=== PATIENT | female | born 1960 | race Caucasian/White ===

== ENCOUNTER → 2020-12-22 11:14 | Outpatient (BNVA) | payer OTHER, SELFPAY | PROVIDERS: Family Provider Nurse Practitioner Family; PCP Nurse Practitioner Family; Visit Provider Nurse Practitioner Family | DX: Z20.822 Contact with and (suspected) exposure to COVID-19 (principal) | CPT/HCPCS: 87635 ==

== ENCOUNTER 2023-10-09 09:06 | Day surgery (SDC) | payer MEDICAID, SELFPAY ==
[2023-10-09 09:23] VITALS: BP 139/89; PULSE 70; RESP 18; TEMP 36.2; O2SAT 96; BMI 36.6
[2023-10-09] MEDS: sodium chloride 0.9% 1,000 ML 30 ML IV (09:35)
--- NOTE | 2023-10-09 11:04 | ANES.PREANE2 ---
Pre-Anesthetic Assessment Height/Weight: Height 1.83 m Weight 122.47 kg Temp Pulse Resp BP Pulse Ox O2 Del Method 97.2 F L 70 18 139/89 96 Room Air 10/09/23 09:23 10/09/23 09:23 10/09/23 09:23 10/09/23 09:23 10/09/23 09:23 10/09/23 09:23 Preop Diagnosis: Screening Operation Date: 10/09/23 10:15 Proposed Procedures p Colonoscopy 18270, G0105, Z98.890 ,Z12.11(Not Applicable) - Thad Quarles DO Familial anesthetic complications: None Was Beta Casandra taken within 24 hours: N/A Was Clonidine taken within 24 hours: N/A Last intake: Intake Last Liquid Date 10/08/23 Last Liquid Time 23:30 Last Solid Date 10/07/23 Last Solid Time 17:00 Social Tobacco (Chews) and No alcohol Exam alert, oriented x 3, clear to auscultation bilaterally and regular rate & rhythm Airway Submandibular: within normal limits Cervical ROM: within normal limits Mallampati: Class III Dentition: partials History/ROS No significant history except as noted and No significant complaints Pulmonary None reported CV/HEM Hypertension None reported Hepatic None reported GI None reported Metabolic Morbid Obesity [facility] [place] None reported Neuropsych None reported Anesthetic Plan ASA status: 2 Anesthesia: Anesthesia Evaluation, General and MAC Risk of > 500 ml blood loss (7ml/kg in children): No Medications/Allergies Home Medications Medication Instructions Recorded Confirmed Last Taken Type hydrochlorothiazide 50 mg tablet 50 mg PO DAILY 09/06/23 10/09/23 10/07/23 History losartan 100 mg tablet 100 mg PO DAILY 09/06/23 10/09/23 10/07/23 History Allergies Allergy/AdvReac Type Severity Reaction Status Date / Time Penicillins Allergy Unknown Verified 10/09/23 09:21 Current Medications Generic Name Dose Route Start Last Admin Trade Name Freq PRN Reason Stop Dose Admin Sodium Chloride 1,000 mls @ 30 mls/hr 10/09/23 09:15 10/09/23 09:35 Sodium Chloride 0.9% IV 10/10/23 09:14 30 mls/hr .Q24H MODESTO Administration PFSH Anesthesia Medical History (Updated 09/06/23 @ 09:50 by Thad Quarlse DO) History of rectal fissure Surgical History (Updated 09/06/23 @ 09:50 by Thad Quarles DO) Hx of excision of dermoid cyst Hx of colonoscopy with polypectomy 7 yrs ago Family History Brother Acute Crohn's disease Social History Smoking and tobacco/nicotine status: current every day tobacco/nicotine user smokeless tobacco Smokeless tobacco user: chewing tobacco Data Anesthesia Cardiac Studies: No Data to Display
--- NOTE | 2023-10-09 11:15 | PM.HP ---
Providers/Chief Complaint Primary Care Provider: Sarah Plata DO Chief Complaint: Z12.11 History of Present Illness Tim Gagnon is a 63 year old female Review of Systems General: Reports: 10 or more systems reviewed and unremarkable except in HPI and below Medications/Allergies Home Medications Medication Instructions Recorded Confirmed Last Taken Type hydrochlorothiazide 50 mg tablet 50 mg PO DAILY 09/06/23 10/09/23 10/07/23 History losartan 100 mg tablet 100 mg PO DAILY 09/06/23 10/09/23 10/07/23 History Allergies Allergy/AdvReac Type Severity Reaction Status Date / Time Penicillins Allergy Unknown Verified 10/09/23 09:21 PFSH Acute PFSH: Medical History (Updated 09/06/23 @ 09:50 by Thad Quarles DO) History of rectal fissure Surgical History (Updated 09/06/23 @ 09:50 by Thad Quarles DO) Hx of excision of dermoid cyst Hx of colonoscopy with polypectomy 7 yrs ago Family History Brother Acute Crohn's disease Social History Smoking and tobacco/nicotine status: current every day tobacco/nicotine user smokeless tobacco Smokeless tobacco user: chewing tobacco Vitals/I&O/Wt Last Vital Signs Temp 97.2 F L 10/09/23 09:23 Pulse 70 10/09/23 09:23 Resp 18 10/09/23 09:23 BP 139/89 10/09/23 09:23 Pulse Ox 96 10/09/23 09:23 O2 Del Method Room Air 10/09/23 09:23 Weight last 48 hrs Weight 270 lb A&P Assessment and plan (1) Hx of colonoscopy with polypectomy: Plan Colonoscopy Attestations Medical Necessity Statement*: Home Coding Level of Care Code Acute Code for Chg Fwd Diagnoses Hx of colonoscopy with polypectomy Z98.890; Z86.010
[2023-10-09 11:30] VITALS: BP 130/79; PULSE 60; RESP 16; TEMP 36.4; O2SAT 95
[2023-10-09 11:57] VITALS: BP 144/84; PULSE 58; RESP 18; O2SAT 95
--- NOTE | 2023-10-09 14:41 | ANE.PACU2 ---
Inpatient post-anesthesia follow up: Airway intact: Yes Vital signs: Temperature 97.5 F Pulse Rate 58 Respiratory Rate 18 Blood Pressure 144/84 Pulse Oximetry 95 Oxygen Delivery Me thod Room Air Oxygen Flow Rate Fraction of Inspir ed Oxygen Hydration adequate: Yes Nausea and vomiting: No Pain level: 2 Mental status: Baseline
== END 2023-10-09 12:04 | disposition home or self-care (01) ==
PROVIDERS: Family Provider Nurse Practitioner Family; PCP Family Medicine; Visit Provider Surgery
PROC: 0DJD8ZZ Inspection of Lower Intestinal Tract, Via Natural or Artificial Opening Endoscopic (ICD-10-PCS; CPT 45378; principal; 2023-10-09 10:15)
DX: K64.8 Other hemorrhoids (principal); Z86.010 Personal history of colon polyps
CPT/HCPCS: G0121; J2704; J7030

== ENCOUNTER 2025-01-05 14:28 | Outpatient (CLI) | payer MEDICAID, SELFPAY ==
--- NOTE | 2025-01-05 14:43 | XRR_ITS ---
PROCEDURE INFORMATION: Exam: XR Right Shoulder Exam date and time: 01/05/2025 3:16 PM Age: 64 years old Clinical indication: Right; Few months limited rom and pain in lateral shoulder; Additional info: R shoulder joint pain TECHNIQUE: Imaging protocol: Radiologic exam of the right shoulder. Views: 2 or more views. COMPARISON: No relevant prior studies available. FINDINGS: Bones/joints: No acute fracture or dislocation of the right shoulder. Mild arthropathy of the right AC joint. Soft tissues: Normal. XR/XR shoulder RT min 2V* [id number] IMPRESSION: No acute fracture or dislocation of the right shoulder.
== END 2025-01-05 14:29 | disposition home or self-care (01) ==
PROVIDERS: Family Provider Nurse Practitioner Family; PCP Family Medicine; Visit Provider Family Medicine
DX: M25.511 Pain in right shoulder (principal); M19.011 Primary osteoarthritis, right shoulder
CPT/HCPCS: 73030

== ENCOUNTER 2025-01-11 19:29 | Observation (INO) | payer MEDICAID, SELFPAY ==
[2025-01-11] VITALS (18 sets, daily range): BP systolic 168–210; BP diastolic 81–113; PULSE 60–80; RESP 14–18; TEMP 36.7; O2SAT 93–100; BMI 35.4
--- NOTE | 2025-01-11 19:38 | CTR_ITS ---
PROCEDURE INFORMATION: Exam: CTA Head With Contrast, Arteriography Exam date and time: 01/11/2025 7:47 PM Age: 64 years old Clinical indication: Weakness; Additional info: Stroke symptoms TECHNIQUE: Imaging protocol: Computed tomographic angiography of the head with contrast. Exam focused on the arteries. 3D rendering (Not supervised by radiologist): MIP and/or 3D reconstructed images were created by the technologist. Radiation optimization: All CT scans at this facility use at least one of these dose optimization techniques: automated exposure control; mA and/or kV adjustment per patient size (includes targeted exams where dose is matched to clinical indication); or iterative reconstruction. Contrast material: OMNI 350; Contrast volume: 200 ml; Contrast route: INTRAVENOUS (IV); COMPARISON: CT head thrombolytic [id number] 01/11/2025 7:44 PM RADIATION DOSE METRICS: Total DLP (mGy-cm): 1070.47 FINDINGS: ANTERIOR CIRCULATION: Right internal carotid artery: Intracranial segment is patent with no significant stenosis. No aneurysm. Moderate to severe cavernous calcified plaque. Right middle cerebral artery: No occlusion or significant stenosis. No aneurysm. Right anterior cerebral artery: No occlusion or significant stenosis. No aneurysm. Left internal carotid artery: Intracranial segment is patent with no significant stenosis. No aneurysm. [id number]-[id number] cavernous calcified plaque. Left middle cerebral artery: No occlusion or significant stenosis. No aneurysm. Left anterior cerebral artery: No occlusion or significant stenosis. No aneurysm. POSTERIOR CIRCULATION: Right vertebral artery: No occlusion or significant stenosis. No aneurysm. Left vertebral artery: No occlusion or significant stenosis. No aneurysm. Basilar artery: No occlusion or significant stenosis. No aneurysm. Right posterior cerebral artery: No occlusion or significant stenosis. No aneurysm. Left posterior cerebral artery: No occlusion or significant stenosis. No aneurysm. Brain: No focal hemorrhage or midline shift identified. See same-day head CT. Cerebral ventricles: No evidence of ventriculomegaly or hydrocephalus. The ventricles seem age-appropriate. Bones/joints: Unremarkable. No acute fracture. Soft tissues: Unremarkable. PROCEDURE INFORMATION: Exam: CTA Neck With Contrast Exam date and time: 01/11/2025 7:47 PM Age: 64 years old Clinical indication: Weakness; Additional info: Stroke symptoms TECHNIQUE: Imaging protocol: Computed tomographic angiography of the neck with contrast. Exam focused on the cervical segments of the vasculature. 3D rendering (Not supervised by radiologist): MIP and/or 3D reconstructed images were created by the technologist. Radiation optimization: All CT scans at this facility use at least one of these dose optimization techniques: automated exposure control; mA and/or kV adjustment per patient size (includes targeted exams where dose is matched to clinical indication); or iterative reconstruction. Contrast material: OMNI 350; Contrast volume: 200 ml; Contrast route: INTRAVENOUS (IV); COMPARISON: CT head thrombolytic [id number] 01/11/2025 7:44 PM RADIATION DOSE METRICS: Total DLP (mGy-cm): 1070.47 FINDINGS: Right common carotid artery: No stenosis. No dissection or occlusion. Mild bulb plaque. Right internal carotid artery: No stenosis of the extracranial segment. No dissection or occlusion. Right external carotid artery: No occlusion or high-grade stenosis identififed. Left common carotid artery: Moderate bulb soft plaque. Left internal carotid artery: 40% origin stenosis of the extracranial segment. No dissection or occlusion. Left external carotid artery: No occlusion or high-grade stenosis identififed. Right vertebral artery: No stenosis. No dissection or occlusion. Left vertebral artery: No stenosis. No dissection or occlusion. Soft tissues: No significant soft tissue swelling or other acute finding noted. Bones/joints: No acute fracture. CT/CT angio headneck* [id number] IMPRESSION: 1. No large vessel high-grade stenosis or occlusion. 2. Advanced diffuse vascular calcification noted. IMPRESSION: No high-grade neck artery stenosis or occlusion. REFERENCES: NASCET CRITERIA. The degree of stenosis in the cervical segment of the internal carotid artery is based on NASCET criteria. Normal is no stenosis. Mild is less than 50% stenosis. Moderate is 50-69% stenosis. Severe is 70% to 99% stenosis. Total occlusion is no detectable patent lumen.
--- NOTE | 2025-01-11 19:39 | CTR_ITS ---
PROCEDURE INFORMATION: Exam: CT Head Without Contrast Exam date and time: 01/11/2025 7:44 PM Age: 64 years old Clinical indication: Stroke-like symptoms; Lt lower extremity weakness; Additional info: Symptoms of acute stroke TECHNIQUE: Imaging protocol: Computed tomography of the head without contrast. Radiation optimization: All CT scans at this facility use at least one of these dose optimization techniques: automated exposure control; mA and/or kV adjustment per patient size (includes targeted exams where dose is matched to clinical indication); or iterative reconstruction. Other technique: STROKE PROTOCOL was implemented. COMPARISON: No relevant prior studies available. RADIATION DOSE METRICS: Total DLP (mGy-cm): 1190.34 FINDINGS: Brain: No focal hemorrhage or midline shift is identified. The ventricles and parenchyma show mild atrophy and chronic bicerebral white matter ischemic change. Cerebral ventricles: No ventriculomegaly or evidence of hydrocephalus. Paranasal sinuses: A few areas of trace sinus mucosal thickening. Mastoid air cells: Visualized mastoid air cells are well aerated. Bones: No displaced skull fracture is noted. Soft tissues: Unremarkable. Vasculature: Diffuse vascular calcifications are present. CT/CT head thrombolytic 58100 IMPRESSION: 1. No acute intracranial abnormality. 2. Mild age-related changes. ASSESSMENT: ASPECTS ([place] Stroke Program Early CT Score) is 10.
--- NOTE | 2025-01-11 19:40 | ED_ITS ---
HPI - General Adult 2 General: Chief complaint: Weakness Stated complaint: Possible Stroke Symptoms Time Seen by Provider: 01/11/25 19:33 History of Present Illness: Patient comes in with concerns for possible stroke symptoms. States that yesterday while walking he developed weakness in his left arm and leg and felt like he was going to fall secondary to the weakness. 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 States his symptoms seem to have resolved, but he is unsure if they went away completely. States he came back again today. His states that during 1 of these episodes he was slurring his speech for short period of time as well. At this time he is asymptomatic. His neuroexam is grossly normal with an NIHSS of 0. Will check labs, EKG, CT head without IV contrast, CTA head and neck, and reassess. Differential diagnosis: Acute stroke, acute stuttering TIA, acute electrolyte abnormality, acute dehydration, acute ICH Associated symptoms: Deny chest pain, dyspnea, nausea, palpitations or vomiting Related Data Home Medications ?Medication ?Instructions ?Recorded ?Confirmed hydrochlorothiazide 50 mg tablet 50 mg PO DAILY 10/09/23 losartan 100 mg tablet 100 mg PO DAILY 09/06/23 Allergies Allergy/AdvReac Type Severity Reaction Status Date / Time Penicillins Allergy Unknown Verified 10/09/23 09:21 Review of Systems 2 Const: Denies: fever(s) or body aches Eyes: Denies: change in vision or blurry vision Card: Denies: chest pain or palpitations Resp: Denies: dyspnea or productive cough GI: Denies: abdominal pain, nausea or vomiting PFSH ED 2 PFSH: Medical History (Updated 01/11/25 @ 21:06 by Lety Orr MD) History of rectal fissure Surgical History (Updated 10/10/23 @ 00:01 by LOTUS Escudero) Hx of excision of dermoid cyst Hx of colonoscopy with polypectomy 7 yrs ago Family History Brother Acute Crohn's disease Social History Smoking and tobacco/nicotine status: never used tobacco/nicotine Physical Exam 2 Const: COMMON NORMALS: no acute distress and healthy appearing HENMT: COMMON NORMALS: normocephalic and atraumatic HEAD & SCALP: n ormocephalic and atraumatic Eye: COMMON NORMALS: Equal, round and reactive pupils present and EOMs intact bilaterally PUPIL: Yes Equal, round and reactive pupils present Neck/C-Spine: COMMON NORMALS: full ROM and supple Resp: COMMON NORMALS: normal respiratory effort, No retractions and No use of accessory muscles Cardio: COMMON NORMALS: regular rate and regular rhythm RATE: regular rate RHYTHM: regular rhythm Extremity: COMMON NORMALS: normal to inspection and full ROM Neuro: OTHER: NIHSS equals 0 Normal gait Strength 5 out of 5 in all 4 extremities, sensation intact in all 4 extremities, normal speech Psych: COMMON NORMALS: mental status grossly normal and cooperative Course 2 Vital Signs: Vital signs: Vital Signs Temperature 98.1 F 01/11/25 19:39 Pulse Rate 67 01/11/25 20:41 Respiratory Rate 18 01/11/25 20:41 Blood Pressure 208/99 01/11/25 20:41 Pulse Oximetry 95 01/11/25 20:41 Oxygen Delivery Me thod Room Air 01/11/25 20:15 MDM - General Adult Medical Decision Making On reassessment I talked with the patient about his test results. His CT head is unremarkable. I discussed the case with the hospitalist. I am concerned for stuttering TIAs or recurrent TIAs. Will admit for TIA workup. Lab Data 01/11/25 19:43 01/11/25 19:43 Radiology Impressions Head/Neck CTA 01/11/25 19:38 IMPRESSION: 1. No large vessel high-grade stenosis or occlusion. 2. Advanced diffuse vascular calcification noted. IMPRESSION: No high-grade neck artery stenosis or occlusion. REFERENCES: NASCET CRITERIA. The degree of stenosis in the cervical segment of the internal carotid artery is based on NASCET criteria. Normal is no stenosis. Mild is less than 50% stenosis. Moderate is 50-69% stenosis. Severe is 70% to 99% stenosis. Total occlusion is no detectable patent lumen. Head CT 01/11/25 19:39 IMPRESSION: 1. No acute intracranial abnormality. 2. Mild age-related changes. ASSESSMENT: ASPECTS ([place] Stroke Program Early CT Score) is 10. ADDENDUM: 01/11/251958 THIS REPORT CONTAINS FINDINGS THAT MAY BE CRITICAL TO PATIENT CARE. The findings were verbally communicated via telephone conference at 7:58 PM CDT on 01/11/2025 with LETY BOB. The findings were acknowledged and understood. Laboratory Results WBC 9.10 10^3/uL (3.29-11.43) 01/11/25 19:43 RBC 5.50 10^6/uL (3.85-5.65) 01/11/25 19:43 Hgb 15.20 g/dL (11.27-16.99) 01/11/25 19:43 Hct 46.2 % (37-53) 01/11/25 19:43 MCV 84.0 fl (82-101) 01/11/25 19:43 MCH 27.6 pg (27-33) 01/11/25 19:43 MCHC 32.9 g/dL (30-55) 01/11/25 19:43 RDW 13.3 % (12.1-15.1) 01/11/25 19:43 Plt Count 222 10^3/cmm (157-399) 01/11/25 19:43 MPV 9.7 fL (7.4-10.4) 01/11/25 19:43 Neut % (Auto) 68.6 % 01/11/25 19:43 Lymph % (Auto) 18.8 % 01/11/25 19:43 [place] % (Auto) 8.8 % 01/11/25 19:43 Eos % (Auto) 2.3 % 01/11/25 19:43 Baso % (Auto) 0.8 % 01/11/25 19:43 Neut # (Auto) 6.25 10^3/uL (1.8-7.7) 01/11/25 19:43 Lymph # (Auto) 1.7 10^3/uL (0.8-4.8) 01/11/25 19:43 [place]ison # (Auto) 0.8 10^3/uL (0.2-0.9) 01/11/25 19:43 Eos # (Auto) 0.2 10^3/uL (0.0-0.8) 01/11/25 19:43 Baso # (Auto) 0.1 10^3/uL (0.0-0.1) 01/11/25 19:43 Nucleated RBC % (auto) 0 % 01/11/25 19:43 Nucleated RBCs # 0.0 /100WBC 01/11/25 19:43 PT 12.80 SECONDS (12.1-14.9) 01/11/25 19:43 INR 0.90 (0.8-1.2) 01/11/25 19:43 APTT 24.7 SECONDS (23.9-36.7) 01/11/25 19:43 Sodium 134 mmol/L (136-145) L 01/11/25 19:43 Potassium 4.0 mmol/L (3.5-5.1) 01/11/25 19:43 Chloride 100 mmol/L (98-107) 01/11/25 19:43 Carbon Dioxide 23 mmol/L (22-29) 01/11/25 19:43 Anion Gap 15.0 (5-19) 01/11/25 19:43 BUN 19 mg/dL (8-23) 01/11/25 19:43 Creatinine 1.1 mg/dL (0.7-1.2) 01/11/25 19:43 GFR Calculation 67.4 mL/min (90-130) L 01/11/25 19:43 Glucose 103 mg/dL (65-115) 01/11/25 19:43 Calculated Osmolality 281 mOsm/kg (285-295) L 01/11/25 19:43 Calcium 9.0 mg/dL (8.5-10.5) 01/11/25 19:43 Total Bilirubin 0.4 mg/dL (0.15-1.2) 01/11/25 19:43 AST 16 U/L (0-40) 01/11/25 19:43 ALT 17 U/L (0-41) 01/11/25 19:43 Alkaline Phosphatase 114 U/L (40-130) 01/11/25 19:43 Troponin T Baseline 20 ng/L (0-15) H 01/11/25 19:43 Total Protein 6.0 g/dL (6.6-8.7) L 01/11/25 19:43 Albumin 4.2 g/dL (3.5-5.2) 01/11/25 19:43 Globulin 1.8 g/dL (1.3-4.6) 01/11/25 19:43 Urine Color Yellow (Yellow) 01/11/25 20:32 Urine Appearance Clear (CLEAR) 01/11/25 20:32 Urine pH 5.5 (5-7) 01/11/25 20:32 Ur Specific [place] 1.072 (1.005-1.030) H 01/11/25 20:32 Urine Protein Negative (Negative) 01/11/25 20:32 Urine Glucose (UA) Negative (Normal) 01/11/25 20:32 Urine Ketones Negative (Negative) 01/11/25 20:32 Urine Blood Negative (Negative) 01/11/25 20: Urine Nitrate Negative (Negative) 01/11/25 20: Urine Bilirubin Negative (Negative) 01/11/25 20: Urine Urobilinogen 1.0 mg/dL (Negative) 01/11/25 20:32 Ur Leukocyte Esterase Negative (Negative) 01/11/25 20:32 Amorphous Sediment Not Reportable 01/11/25 20:32 Urine Opiates Screen Negative ng/mL (Negative) 01/11/25 20:32 Ur Barbiturates Screen Negative ng/mL (Negative) 01/11/25 20:32 Ur Phencyclidine Scrn Negative ng/mL (Negative) 01/11/25 20:32 Ur Amphetamines Screen Negative ng/mL (Negative) 01/11/25 20:32 U Benzodiazepines Scrn Negative ng/mL (Negative) 01/11/25 20:32 Urine Cocaine Screen Negative ng/mL (Negative) 01/11/25 20:32 U Marijuana (THC) Screen Negative ng/mL (Negative) 01/11/25 20:32 All radiology interpretation(s) finalized by discharge EKG Data ECG done January 11, 2025 at 8:03 PM and interpreted by me at 8:04 PM shows sinus rhythm, ventricular of 66 bpm, no ST segment elevation: Computer generated interpretation: Head/Neck CTA 01/11/25 19:38 IMPRESSION: 1. No large vessel high-grade stenosis or occlusion. 2. Advanced diffuse vascular calcification noted. IMPRESSION: No high-grade neck artery stenosis or occlusion. REFERENCES: NASCET CRITERIA. The degree of stenosis in the cervical segment of the internal carotid artery is based on NASCET criteria. Normal is no stenosis. Mild is less than 50% stenosis. Moderate is 50-69% stenosis. Severe is 70% to 99% stenosis. Total occlusion is no detectable patent lumen. Head CT 01/11/25 19:39 IMPRESSION: 1. No acute intracranial abnormality. 2. Mild age-related changes. ASSESSMENT: ASPECTS ([place] Stroke Program Early CT Score) is 10. ADDENDUM: 01/11/251958 THIS REPORT CONTAINS FINDINGS THAT MAY BE CRITICAL TO PATIENT CARE. The findings were verbally communicated via telephone conference at 7:58 PM CDT on 01/11/2025 with LETY BOB. The findings were acknowledged and understood. Discharge Plan Discharge Patient Disposition: Placed in Observation Clinical Impression: TIA (transient ischemic attack) Coding Level of Care Code ED Electric Organ Inspector And Repairer for Rosalio Atkinson
[2025-01-11 19:49] LABS: Hematocrit 46.2 % (37-53); Hemoglobin 15.20 g/dL (11.27-16.99); Mean Corpuscular HGB Conc 32.9 g/dL (30-55); Mean Corpuscular Hemoglobin 27.6 pg (27-33); Mean Corpuscular Volume 84.0 fl (82-101); Nucleated Red Blood Cells % 0 %; Platelet Count 222 10^3/cmm (157-399); Red Blood Count 5.50 10^6/uL (3.85-5.65); White Blood Count 9.10 10^3/uL (3.29-11.43)
[2025-01-11] MEDS: iohexol 350 mg/mL 500 mL Btl (per mL) IV (20:00)
[2025-01-11 20:01] LABS: INR 0.90 (0.8-1.2); Prothrombin Time 12.80 SECONDS (12.1-14.9)
[2025-01-11 20:02] LABS: Partial Thromboplastin Time 24.7 SECONDS (23.9-36.7)
--- NOTE | 2025-01-11 20:03 | ECG_ITS ---
[facility] Test Date: 2025-01-11 Pat Name: Tim Gagnon Department: Room: Gender: Male Therapeutic Recreation Leader: : 1960 Requested By: Talon Orr Order Number: [id number] Reading MD: Measurements Intervals [place] Rate: 66 P: 81 W[place]: 156 QRS: 71 QRSD: 92 T: 66 QT: 388 QTc: 408 Interpretive Statements SINUS RHYTHM [email or web address]
[2025-01-11 20:09] LABS: Alanine Aminotransferase 17 U/L (0-41); Albumin Level 4.2 g/dL (3.5-5.2); Alkaline Phosphatase 114 U/L (40-130); Anion Gap 15.0 (5-19); Aspartate Amino Transferase 16 U/L (0-40); Blood Urea Nitrogen 19 mg/dL (8-23); Calcium 9.0 mg/dL (8.5-10.5); Carbon Dioxide 23 mmol/L (22-29); Chloride 100 mmol/L (98-107); Creatinine Clr Calc Pharmacy 90.1206; Globulin 1.8 g/dL (1.3-4.6); Glucose 103 mg/dL (65-115); Osmolality Calculated 281 mOsm/kg (285-295); Potassium 4.0 mmol/L (3.5-5.1); Sodium 134 mmol/L (136-145); Total Protein 6.0 g/dL (6.6-8.7); Troponin(5th) Baseline 20 ng/L (0-15)
[2025-01-11 20:36] LABS: Add Urine Microscopic? NO
[2025-01-11 20:39] LABS: Glucose Urine UA Negative (Normal); Nitrate Urine Negative (Negative)
[2025-01-11 20:46] LABS: PCP Screen Urine Negative (Negative)
[2025-01-11 20:56] LABS: Specific Gravity, Urine 1.072 (1.005-1.030)
[2025-01-11 20:57] LABS: Charge for UA Resulting for Rev
--- NOTE | 2025-01-11 21:40 | USCV_ITS ---
Tim Gagnon Age: 64 Gender: M : 1960 Exam Date: 01/11/2025 21:50 Ordering Phys: Paxton Barrow MD Technologist: LIBBY [place] [facility] [place]: Left hemiparesis, slurred speech BP: 176 / 108 HR: 71 Rhythm: Sinus Technical Quality: Adequate MEASUREMENTS (Male / Female) Normal Values 2D ECHO LV Diastolic Diameter PLAX 5.1 cm 4.2 - 5.9 / 3.9 - 5.3 cm IVS Diastolic Thickness 1.4 cm 0.6 - 1.0 / 0.6 - 0.9 cm IVS Systolic Thickness 2.1 cm LVPW Diastolic Thickness 1.6 cm 0.6 - 1.0 / 0.6 - 0.9 cm LVPW Systolic Thickness 1.7 cm LVOT Diameter 2.5 cm LV Ejection Fraction 2D Teich 62.2 % LV Ejection Fraction MOD 4C 52.6 % LV Ejection Fraction MOD 2C 59.6 % LV Ejection Fraction 2C AL 63.9 % LA Diameter 4.3 cm Aorta at Sinotubular Diameter 3.0 cm IVC Diameter 2.4 cm M-MODE LA Ao Ratio MM 1.4 AV Cusp Separation MM 1.6 cm DOPPLER AV Peak Velocity 115.0 cm/s LVOT Peak Velocity 101.0 cm/s AV Area Cont Eq vti 4.8 cm squared AV Area Cont Eq pk 4.2 cm squared MV Peak Velocity 116.0 cm/s MV Area PHT 2.7 cm squared Mitral E to A Ratio 1.2 TV Peak Velocity 222.0 cm/s TR Peak Velocity 267.0 cm/s TR Peak Gradient 28.5 mmHg TV Peak E Velocity 30.0 cm/s PV Peak Velocity 78.0 cm/s FINDINGS Left Ventricle Left ventricle is normal in size. LV systolic function is normal with EF of 55-60%. No regional wall motion abnormalities are seen. Right Ventricle Normal in size and function Right Atrium Normal in size Left Atrium Dilated Mitral Valve Structurally normal mitral valve. Mild mitral regurgitation. Aortic Valve Structurally normal aortic valve. No significant stenosis. Tricuspid Valve Mild tricuspid regurgitation. Pulmonary artery systolic pressure is normal. Pulmonic Valve Not well visualized Pericardium Normal Aorta Normal in size IVC Appears to be dilated CONCLUSIONS LV systolic function is normal with EF of 55-60% Left atrial dilation Mild mitral regurgitation Mild tricuspid regurgitation IVC appears to be dilated Arian Lopez MD (Electronically Signed) Final Date: 12 January 2025 12:14 S
--- NOTE | 2025-01-11 21:42 | P.HP_ITS ---
Providers/Chief Complaint 2 Primary Care Provider: Sarah Plata DO Chief Complaint: Possible Stroke Symptoms History of Present Illness Tim Gagnon is a 64 year old male with a past medical history of hypertension, type 2 diabetes mellitus with A1c of 6.1, on Ozempic, who presents to [facility] due to left-sided weakness, clumsiness. 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, he noticed that he had left hand clumsiness, weakness, left lower extremity weakness, it was almost as if he tells me he was bottles with alcohol, the symptoms were transient he was able to get back into his home, he sat in his chair, he could intermittently notice it but that his symptoms are ultimately going away, symptom onset was 2 PM yesterday, he tells me he woke up today nothing out of the ordinary, again today at about 2 hours so he had similar left upper and lower extremity clumsiness, weakness, he felt imbalanced, felt buzzed, his daughter convinced him to come to the hospital, and a stroke scale on admission was 0, was not deemed a tPA candidate, CT head no acute findings, CTA head and neck shows 40% origin stenosis of the extracranial segment, he does tell me that he has not taken his blood pressure medication since Saturday, blood pressure admission 201/111, denies any chest pain, no palpitations Review of Systems 2 Const: Denies: fever(s) Card: Denies: chest pain Resp: Denies: dyspnea Medications/Allergies Home Medications ?Medication ?Instructions ?Recorded ?Confirmed ?Last Taken ?Type hydrochlorothiazide 50 mg tablet 50 mg PO DAILY 10/09/23 10/07/23 History losartan 100 mg tablet 100 mg PO DAILY 09/06/2310/07/23 History Allergies Allergy/AdvReac Type Severity Reaction Status Date / Time Penicillins Allergy Unknown Verified 10/09/23 09:21 PFSH Acute 2 PFSH: Medical History (Updated 01/11/25 @ 21:06 by Talon Orr MD) History of rectal fissure Surgical History (Updated 10/10/23 @ 00:01 by LOTUS Escudero) Hx of excision of dermoid cyst Hx of colonoscopy with polypectomy 7 yrs ago Family History Brother Acute Crohn's disease Social History Smoking and tobacco/nicotine status: never used tobacco/nicotine Vitals/I&O/Wt Last Vital Signs Temp 98.1 F 01/11/25 19:39 Pulse 67 01/11/25 21:30 Resp 18 01/11/25 21:30 BP 176/108 01/11/25 21:39 Pulse Ox 94 01/11/25 21:30 O2 Del Method Room Air 01/11/25 21:30 Weight last 48 hrs Weight 118.388 kg Physical Exam 2 Const: COMMON NORMALS: no acute distress and patient oriented x3 HENMT: COMMON NORMALS: normocephalic HEAD & SCALP: normocephalic Eye: COMMON NORMALS: Equal, round and reactive pupils present Neck/C-Spine: COMMON NORMALS: no JVD Resp: COMMON NORMALS: normal respiratory effort, No retractions, No use of accessory muscles and clear to auscultation bilaterally AUSCULTATION: clear to auscultation bilaterally Cardio: COMMON NORMALS: no JVD, regular rate, regular rhythm, S1 normal heart sound present and S2 normal heart sound present RATE: regular rate RHYTHM: regular rhythm HEART SOUNDS: S1 normal heart sound present and S2 normal heart sound present GI: COMMON NORMALS: Normal to inspection, nondistended, normoactive bowel sounds present, Soft to palpation and non-tender PALPATION: Yes No hepatosplenomegaly present Extremity: COMMON NORMALS: no calf tenderness and no pedal edema Neuro: COMMON NORMALS: patient oriented x3, CN's II-XII intact bilaterally and moves all extremities Psych: COMMON NORMALS: mental status grossly normal Data 01/11/25 19:43 01/11/25 19:43 A&P Assessment and plan 1. TIA (transient ischemic attack): - Transient left-sided weakness, clumsy hand, clumsy leg, imbalance, - 2PM today -NIH stroke scale 0 - Not a tPA candidate - Hypertensive 201/111, now 176/[address]/CT head thrombolytic [id number] IMPRESSION: 1. No acute intracranial abnormality. 2. Mild age-related changes. Right common carotid artery: No stenosis. No dissection or occlusion. Mild bulb plaque. Right internal carotid artery: No stenosis of the extracranial segment. No dissection or occlusion. Right external carotid artery: No occlusion or high-grade stenosis identififed. Left common carotid artery: Moderate bulb soft plaque. Left internal carotid artery: 40% origin stenosis of the extracranial segment. No dissection or occlusion. Left external carotid artery: No occlusion or high-grade stenosis identififed. Right vertebral artery: No stenosis. No dissection or occlusion. Left vertebral artery: No stenosis. No dissection or occlusion. Soft tissues: No significant soft tissue swelling or other acute finding noted. Bones/joints: No acute fracture. CT/CT angio headneck* [id number] IMPRESSION: 1. No large vessel high-grade stenosis or occlusion. 2. Advanced diffuse vascular calcification noted. IMPRESSION: No high-grade neck artery stenosis or occlusion. Plan -Neurochecks -NIH stroke scale -Telemetry monitoring -Cardiac echo -Resume home blood pressure medications today -Blood pressure management -Monitor mentation closely -Full code -Lovenox for DVT prophylaxis Hypertensive urgency -Resume home blood pressure medications -Goal systolic blood pressure less than 160, diastolic blood pressure less than 100 -Monitor blood pressure PDMP PDMP Reviewed: Not Reviewed Attestations 2 Medical Necessity Statement*: Patient requires hospitalization, outpatient with observation, for TIA, hypertensive urgency Diagnoses TIA (transient ischemic attack) G45.9
--- NOTE | 2025-01-11 22:28 | ECG_ITS ---
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
[2025-01-11 22:47] LABS: Troponin 5 2HR 19.63 ng/L (0-15)
[2025-01-11 22:51] LABS: Troponin 5 2HR Delta -0.37 ABS# (0-10)
[2025-01-12] VITALS (9 sets, daily range): BP systolic 168–194; BP diastolic 84–106; PULSE 52–69; RESP 16–19; TEMP 36.2–36.7; O2SAT 94–96; BMI 35.5
[2025-01-12] MEDS: pantoprazole 40 mg SDV IVP (01:25)
--- NOTE | 2025-01-12 01:40 | ECG_ITS ---
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
[2025-01-12 02:25] LABS: Hematocrit 43.7 % (37-53); Hemoglobin 14.70 g/dL (11.27-16.99); Mean Corpuscular HGB Conc 33.6 g/dL (30-55); Mean Corpuscular Hemoglobin 28.1 pg (27-33); Mean Corpuscular Volume 83.6 fl (82-101); Nucleated Red Blood Cells % 0 %; Platelet Count 205 10^3/cmm (157-399); Red Blood Count 5.23 10^6/uL (3.85-5.65); White Blood Count 8.31 10^3/uL (3.29-11.43)
[2025-01-12 02:41] LABS: Troponin 5 6HR 21.79 ng/L (0-15); Troponin 5 6HR Delta 1.79 ng/L (0-12)
[2025-01-12 02:45] LABS: Anion Gap 15.2 (5-19); Blood Urea Nitrogen 15 mg/dL (8-23); Calcium 8.7 mg/dL (8.5-10.5); Carbon Dioxide 23 mmol/L (22-29); Chloride 106 mmol/L (98-107); Creatinine Clr Calc Pharmacy 99.3240; Glucose 93 mg/dL (65-115); Osmolality Calculated 291 mOsm/kg (285-295); Potassium 4.2 mmol/L (3.5-5.1); Sodium 140 mmol/L (136-145)
[2025-01-12 02:56] LABS: Cholesterol 169 mg/dL (0-200); HDL Cholesterol 36 mg/dL (60-100); Thyroid Stimulating Hormone 2.24 uIU/mL (0.27-4.20); Triglycerides 97 mg/dL (0-150)
--- NOTE | 2025-01-12 09:25 | PC.PHAR ---
Pt states he takes losartan 100mg every day. Pharmacy shows last fill 02/27/24 30ds-verified.
--- NOTE | 2025-01-12 09:55 | PC.CHAP ---
Pastoral Care Encounter/Spiritual Assessment Type of Contact [] Declined pmo project manager visit [] Patient/Family/Request visit [] Outpatient visit [] Follow-up visit [] Physician referral [] Code/Alert [x] Routine visit [] Staff referral [] Actively dying [] Patient sleeping [x] Family support [] [] Out of room [] Palliative care [] [] Receiving care in room [] Pre-surgical visit [] Trauma [] Long length of stay [] ICU visit [] Other: Relational/Emotional Strength [x] Patient feels connected with others/family/visitors/staff [] Distress [] Loneliness/isolation [] Abandonment Spirituality of Patient [x] Person of Юлия [] Attends Voodoo of their Юлия [x] Believes in Prayer [] Reads Bible or Episcopalian materials [] There are Spiritual issues to be addressed Manager Steel Interventions [x] Prayer [x] Active listening [x] Non-anxious presence [x] Spiritual/emotional support [] Crisis/trauma care [] Spiritual counseling [] Bereavement support [] Provided bereavement packet [] Provided Bible/devotional materials [] Provided toy/stuffed animal, coloring book to patient or family member [] Provided Communion [] Anointing/[place] [] Salvation [x] Completed spiritual assessment [] Other: Impact on Illness or Injury [] Angry [] Fearful [] Anxious [] Often cries [] Exhaustion [] Unable to work [] Unable to attend lutheran [] Unable to walk/stand [] Unable to read [] Unable to drive [] Unable to eat/drink [] Unable to sleep [] Unable to be with family [] Patient intubated [] Other: Summary Time spent with patient 5 min
--- NOTE | 2025-01-12 11:07 | PM.DCS ---
Discharge Providers Date of Admission: 01/11/25 21:07 Date of Discharge: January 12, 2025 Attending Provider at Admission: Paxton Barrow MD Attending Provider at Discharge: Randal Milner MD Primary Care Provider: Sarah Plata DO Diagnoses at Discharge Discharge Diagnosis 1. TIA (transient ischemic attack): Reason for Visit Reason for Visit: Possible Stroke Symptoms Brief History: Juan F Gagnon is a 64 year old male with a past medical history of hypertension, type 2 diabetes mellitus with A1c of 6.1, on Ozempic, who presents to [facility] due to left-sided weakness, clumsiness. 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, he noticed that he had left hand clumsiness, weakness, left lower extremity weakness, it was almost as if he tells me he was bottles with alcohol, the symptoms were transient he was able to get back into his home, he sat in his chair, he could intermittently notice it but that his symptoms are ultimately going away, symptom onset was 2 PM yesterday, he tells me he woke up today nothing out of the ordinary, again today at about 2 hours so he had similar left upper and lower extremity clumsiness, weakness, he felt imbalanced, felt buzzed, his daughter convinced him to come to the hospital, and a stroke scale on admission was 0, was not deemed a tPA candidate, CT head no acute findings, CTA head and neck shows 40% origin stenosis of the extracranial segment, he does tell me that he has not taken his blood pressure medication since Saturday, blood pressure admission 201/111, denies any chest pain, no palpitations Hospital Course Hospital Course Patient was admitted to the hospital for evaluation and management of dizziness with wooziness with concerns for possible TIA. During hospitalization he did not have any further symptoms. CTA was done which showed concern for mild carotid stenosis. During hospitalization he was found to have heart rate running down to mid 50s with blood pressure being elevated up to 180s. He was also found to have blood sugars running in 80s. Multiple etiologies for possible preop symptoms were discussed in detail with the patient with concerns for hypoglycemia, elevated blood pressures and bradycardia. He has been discharged in hemodynamically stable condition with advised to continue with home medications and losartan, hydrochlorothiazide and Ozempic. He is advised to maintain a blood pressure diary over next 2 weeks with a goal blood pressure of less than 140/90 mmHg. He is to take amlodipine 10 mg daily if his blood pressures persistently remains more than 140. He is to maintain a blood sugar diary with a goal fasting blood sugar of less than 120 more than 80. If his blood sugars are dropping below 80 he should talk to his family doctor regarding discontinuing Ozempic and transition to oral antidiabetic medications. Event monitor has been arranged for further evaluation and management of bradycardia. Safe discharge plan were discussed in detail with the patient and spouse at bedside and all the questions were answered. Physical Exam Const: COMMON NORMALS: no acute distress and patient oriented x3 HENMT: COMMON NORMALS: normocephalic HEAD & SCALP: normocephalic Eye: COMMON NORMALS: Equal, round and reactive pupils present PUPIL: Yes Equal, round and reactive pupils present Neck/C-Spine: COMMON NORMALS: no JVD Resp: COMMON NORMALS: normal respiratory effort, No retractions, No use of accessory muscles and clear to auscultation bilaterally AUSCULTATION: clear to auscultation bilaterally Cardio: COMMON NORMALS: no JVD, regular rate, regular rhythm, S1 normal heart sound present and S2 normal heart sound present RATE: regular rate RHYTHM: regular rhythm HEART SOUNDS: S1 normal heart sound present and S2 normal heart sound present GI: COMMON NORMALS: Normal to inspection, nondistended, normoactive bowel sounds present, Soft to palpation, non-tender and No hepatosplenomegaly present PALPATION: Yes Soft to palpation and Yes No hepatosplenomegaly present Extremity: COMMON NORMALS: no calf tenderness and no pedal edema Neuro: COMMON NORMALS: patient oriented x3, CN's II-XII intact bilaterally and moves all extremities Psych: COMMON NORMALS: mental status grossly normal Discharge Data Studies Completed and Pending Completed Studies During Hospitalization Category Date Time Status CT angio headneck* [id number] Stat Cat Scan 01/11/25 19:[address] head thrombolytic [id number] Stat Cat Scan 01/11/25 19:39 Completed Pending at discharge Category Date Time Status A1C [Hemoglobin A1C] Routine Lab 01/12/25 02:00 Received B12 [Vitamin B12] Routine Lab 01/12/25 02:00 Received Basic Metabolic Panel AM LABS Lab 01/13/25 04:00 Ordered Basic Metabolic Panel AM LABS Lab 01/14/25 04:00 Ordered Complete Blood Count w/Auto AM LABS Lab 01/13/25 04:00 Ordered Complete Blood Count w/Auto AM LABS Lab 01/13/25 04:00 Ordered Complete Blood Count w/Auto AM LABS Lab 01/14/25 04:00 Ordered Comprehensive Metabolic Panel AM LABS Lab 01/13/25 04:00 Ordered Folate Level AM LABS Lab 01/13/25 04:00 Ordered MAG [Magnesium] AM LABS Lab 01/13/25 04:00 Ordered MAG [Magnesium] AM LABS Lab 01/14/25 04:00 Ordered MAG [Magnesium] AM LABS Lab 01/15/25 04:00 Ordered TIBC [Total Iron Binding Capacity] Routine Lab 01/12/25 02:00 Received Thyroid Stimulating Hormone Stat Lab 01/12/25 02:00 Received CV. echo complete* [id number] Routine Ultrasound 01/11/25 21:40 Taken Radiology Impressions Head/Neck CTA 01/11/25 19:38 IMPRESSION: 1. No large vessel high-grade stenosis or occlusion. 2. Advanced diffuse vascular calcification noted. IMPRESSION: No high-grade neck artery stenosis or occlusion. REFERENCES: NASCET CRITERIA. The degree of stenosis in the cervical segment of the internal carotid artery is based on NASCET criteria. Normal is no stenosis. Mild is less than 50% stenosis. Moderate is 50-69% stenosis. Severe is 70% to 99% stenosis. Total occlusion is no detectable patent lumen. Head CT 01/11/25 19:39 IMPRESSION: 1. No acute intracranial abnormality. 2. Mild age-related changes. ASSESSMENT: ASPECTS (Jaimie Stroke Program Early CT Score) is 10. ADDENDUM: 01/11/251958 THIS REPORT CONTAINS FINDINGS THAT MAY BE CRITICAL TO PATIENT CARE. The findings were verbally communicated via telephone conference at 7:58 PM CDT on 01/11/2025 with LETY BOB. The findings were acknowledged and understood. Laboratory Results WBC 8.31 10^3/uL (3.29-11.43) 01/12/25 02:00 RBC 5.23 10^6/uL (3.85-5.65) 01/12/25 02:00 Hgb 14.70 g/dL (11.27-16.99) 01/12/25 02:00 Hct 43.7 % (37-53) 01/12/25 02:00 MCV 83.6 fl (82-101) 01/12/25 02:00 MCH 28.1 pg (27-33) 01/12/25 02:00 MCHC 33.6 g/dL (30-55) 01/12/25 02:00 RDW 13.3 % (12.1-15.1) 01/12/25 02:00 Plt Count 205 10^3/cmm (157-399) 01/12/25 02:00 MPV 10.1 fL (7.4-10.4) 01/12/25 02:00 Neut % (Auto) 65.9 % 01/12/25 02:00 Lymph % (Auto) 22.1 % 01/12/25 02:00 [place] % (Auto) 8.4 % 01/12/25 02:00 Eos % (Auto) 2.4 % 01/12/25 02:00 Baso % (Auto) 0.6 % 01/12/25 02:00 Neut # (Auto) 5.47 10^3/uL (1.8-7.7) 01/12/25 02:00 Lymph # (Auto) 1.8 10^3/uL (0.8-4.8) 01/12/25 02:00 [place] # (Auto) 0.7 10^3/uL (0.2-0.9) 01/12/25 02:00 Eos # (Auto) 0.2 10^3/uL (0.0-0.8) 01/12/25 02:00 Baso # (Auto) 0.1 10^3/uL (0.0-0.1) 01/12/25 02:00 Nucleated RBC % (auto) 0 % 01/12/25 02:00 Nucleated RBCs # 0.0 /100WBC 01/12/25 02:00 PT 12.80 SECONDS (12.1-14.9) 01/11/25 19:43 INR 0.90 (0.8-1.2) 01/11/25 19:43 APTT 24.7 SECONDS (23.9-36.7) 01/11/25 19:43 Sodium 140 mmol/L (136-145) 01/12/25 02:00 Potassium 4.2 mmol/L (3.5-5.1) 01/12/25 02:00 Chloride 106 mmol/L (98-107) 01/12/25 02:00 Carbon Dioxide 23 mmol/L (22-29) 01/12/25 02:00 Anion Gap 15.2 (5-19) 01/12/25 02:00 BUN 15 mg/dL (8-23) 01/12/25 02:00 Creatinine 1.0 mg/dL (0.7-1.2) 01/12/25 02:00 GFR Calculation 75.2 mL/min (90-130) L 01/12/25 02:00 Glucose 93 mg/dL (65-115) 01/12/25 02:00 Calculated Osmolality 291 mOsm/kg (285-295) 01/12/25 02:00 Calcium 8.7 mg/dL (8.5-10.5) 01/12/25 02:00 Total Bilirubin 0.4 mg/dL (0.15-1.2) 01/11/25 19:43 AST 16 U/L (0-40) 01/11/25 19:43 ALT 17 U/L (0-41) 01/11/25 19:43 Alkaline Phosphatase 114 U/L (40-130) 01/11/25 19:43 Troponin T Baseline 20 ng/L (0-15) H 01/11/25 19:43 Troponin T 120 Minute 19.63 ng/L (0-15) H 01/11/25 22:25 Delta Troponin T -0.37 ABS# (0-10) L 01/11/25 22:25 Troponin T Hi Sens 6Hr 21.79 ng/L (0-15) H 01/12/25 02:00 Troponin T Hi Sens 6Hr Delta 1.79 ng/L (0-12) 01/12/25 02:00 Total Protein 6.0 g/dL (6.6-8.7) L 01/11/25 19:43 Albumin 4.2 g/dL (3.5-5.2) 01/11/25 19:43 Globulin 1.8 g/dL (1.3-4.6) 01/11/25 19:43 Triglycerides 97 mg/dL (0-150) 01/12/25 02:00 Cholesterol 169 mg/dL (0-200) 01/12/25 02:00 LDL Cholesterol, Calc 114 mg/dL (50-129) 01/12/25 02:00 HDL Cholesterol 36 mg/dL (60-100) L 01/12/25 02:00 LDL/HDL Ratio 3.17 RATIO (0.00-3.22) 01/12/25 02:00 Cholesterol/HDL Ratio 4.69 mg/dL (1.0-5.00) 01/12/25 02:00 TSH 2.24 uIU/mL (0.27-4.20) 01/12/25 02:00 Urine Color Yellow (Yellow) 01/11/25 20:32 Urine Appearance Clear (CLEAR) 01/11/25 20: Urine pH 5.5 (5-7) 01/11/25 20:32 Ur Specific [place] 1.072 (1.005-1.030) H 01/11/25 20:32 Urine Protein Negative (Negative) 01/11/25 20:32 Urine Glucose (UA) Negative (Normal) 01/11/25 20:32 Urine Ketones Negative (Negative) 01/11/25 20: Urine Blood Negative (Negative) 01/11/25 20: Urine Nitrate Negative (Negative) 01/11/25 20:32 Urine Bilirubin Negative (Negative) 01/11/25 20:32 Urine Urobilinogen 1.0 mg/dL (Negative) 01/11/25 20:32 Ur Leukocyte Esterase Negative (Negative) 01/11/25 20:32 Amorphous Sediment Not Reportable 01/11/25 20:32 Urine Opiates Screen Negative ng/mL (Negative) 01/11/25 20:32 Ur Barbiturates Screen Negative ng/mL (Negative) 01/11/25 20:32 Ur Phencyclidine Scrn Negative ng/mL (Negative) 01/11/25 20:32 Ur Amphetamines Screen Negative ng/mL (Negative) 01/11/25 20:32 U Benzodiazepines Scrn Negative ng/mL (Negative) 01/11/25 20:32 Urine Cocaine Screen Negative ng/mL (Negative) 01/11/25 20:32 U Marijuana (THC) Screen Negative ng/mL (Negative) 01/11/25 20:32 Vitals Last Vital Signs Temp 97.5 F L 01/12/25 08:00 Pulse 56 L 01/12/25 10:00 Resp 19 H 01/12/25 08:00 BP 169/90 01/12/25 10:00 Pulse Ox 95 01/12/25 08:00 O2 Del Method Room Air 01/12/25 08:00 Discharge Plan Discharge Patient Disposition: Home Condition: Stable Prescriptions: New aspirin 81 mg Tablet,Delayed Release (Dr/Ec) 81 mg PO DAILY Qty: 30 0RF simvastatin 20 mg tablet 20 mg PO QPM Qty: 30 0RF amlodipine 5 mg tablet 5 mg PO DAILY Qty: 30 0RF Continued losartan 100 mg tablet 100 mg PO QAM hydrochlorothiazide 50 mg tablet 50 mg PO DAILY Ozempic 0.25 mg or 0.5 mg (2 mg/3 mL) pen injector 0.25 mg SUBCUT Q7D Rx Instructions: Saturday Discharge Order = DC NOW: Discharge Order (Routine); Ordered 01/12/25 Ordered By: Randal Milner Other Ambulatory Orders: MCT/Event Monitor 21 Days (Routine) Timeframe: 1 Week Facility: [facility] - Location: Radiology Ordered By: Randal Milner Referrals: Sarah Plata DO [Primary Care Provider, Family Practice] - 01/20/25 9:30 am Referral Note: Discharge Diet: Diabetic Discharge Activity: Resume usual activity and Increase activity as tolerated Patient Instructions: Aspirin (By mouth) (Kailey Extra Strength, Kailey Aspirin Children[facility],..., Amlodipine (By mouth) (Hypertenipine-2.5, Norvasc, Norliqva), Simvastatin (By mouth) (Zocor), Transient Ischemic Attack (DC), Opioid Safety, Stroke Stoplight, Patient Portal & Flavio Instructions Activity Restrictions/Additional Instructions: He is advised to maintain a blood pressure diary over next 2 weeks with a goal blood pressure of less than 140/90 mmHg. He is to take amlodipine 10 mg daily if his blood pressures persistently remains more than 140mmhg. He is to maintain a blood sugar diary with a goal fasting blood sugar of less than 120 more than 80. If his blood sugars are dropping below 80 he should talk to his family doctor regarding discontinuing Ozempic and transition to oral antidiabetic medications. Should have a repeat lipid panel in 6 months after starting simvastatin. Discharge Attestations Time Spent in Discharge Care*: greater than 30 min Specific Discharge Activities: educating patient, educating and/or supporting family/caregiver, discussing with pcp/other providers, discussing with onsite case manager/social workers/dc planners, documenting/other paperwork and evaluating patient/reviewing data Status at Discharge: Cognitive status at discharge: cognitively intact, Behavioral status at discharge: cooperative, Functional status at discharge: independent ambulation, Overall status at discharge: patient is back to baseline Quality Metrics Clinical Quality Measures [ No reported AMI, CVA or VTE this stay] Coding Level of Care Code 77961 Total time (in minutes) for Discharge: 90 Diagnoses TIA (transient ischemic attack) G45.9
[2025-01-12 11:26] LABS: Estmated Average Glucose 128; Hemoglobin A1C 6.1 % (4.0-6.0)
[2025-01-12 11:48] LABS: Iron 61 ug/dL (59-158); Thyroid Stimulating Hormone 2.31 uIU/mL (0.27-4.20); Total Iron Binding Capacity 270 mcg/dl; Unsaturated Iron Binding 209 ug/dL (112-347); Vitamin B12 393 pg/mL (232-1245)
--- NOTE | 2025-01-12 14:33 | PC.OT ---
PATIENT D/C BEFORE EVALUATION COULD BE COMPLETED
== END 2025-01-12 12:30 | disposition home or self-care (01) ==
LOC: ER 21:06 → MEDSURG 01-12 00:26
PROVIDERS: Admitting Provider Family Medicine; Emergency Provider Emergency Medicine; Family Provider Nurse Practitioner Family; PCP Family Medicine; Visit Provider Student in an Organized Health Care Education/Training Program
DX: G45.9 Transient cerebral ischemic attack, unspecified (principal); I10 Essential (primary) hypertension; E11.9 Type 2 diabetes mellitus without complications
CPT/HCPCS: 36415; 36416; 70450; 70496; 70498; 80048; 80053; 80061; 80306; 81003; 82607; 82962; 83036; 83540; 83550; 84443; 84484; 85025; 85610; 85730; 93005; 93306; 94664; 96372; 97161; G0378; J1650; J2470; J7040; J9999

== ENCOUNTER 2025-01-13 06:56 | Outpatient (CLI) | payer MEDICAID, SELFPAY ==
--- NOTE | 2025-01-13 07:10 | MR_ITS ---
WS: [id number] MRI RIGHT SHOULDER NONCONTRAST TECHNIQUE: Sagittal T2, coronal T1, T2 and proton density imaging. Axial gradient PDE imaging. CLINICAL INFORMATION: SHOULDER JOINT PAIN, RIGHT COMPARISON: None. FINDINGS: Moderate joint arthritis AC joint mild downsloping acromion with slight impingement distal supraspinatus. Small amount of subacromial subdeltoid fluid. Tendinopathy supraspinatus and infraspinatus. Tiny insertional tear supraspinatus. Tiny bursal surface tear infraspinatus. Normal teres minor. Normal subscapularis tendon. Biceps tendon appears intact in the bicipital groove. Intra-articular biceps tendon appears intact. Moderate degenerative narrowing glenohumeral articulation. Subchondral cystic change of the greater tuberosity. Small ganglion cyst deep to the AC joint. MR/MR shoulder RT wo con* [id number] IMPRESSION: 1. Tendinopathy supraspinatus and infraspinatus. 2. Tiny insertional tear supraspinatus. Small intrasubstance and bursal surfac e tear infraspinatus. 3. Rotator cuff is otherwise normal in appearance. 4. Biceps tendon intact within the bicipital groove. 5. Intra-articular biceps tendon appears intact. 6. Moderate to advanced degenerative narrowing of the glenohumeral articulatio n.
== END 2025-01-13 06:57 | disposition home or self-care (01) ==
LOC: RAD 06:56
PROVIDERS: PCP Family Medicine; Visit Provider Family Medicine
DX: M25.511 Pain in right shoulder (principal); M75.32 Calcific tendinitis of left shoulder; M75.31 Calcific tendinitis of right shoulder; M75.111 Incomplete rotator cuff tear or rupture of right shoulder, not specified as traumatic; M19.011 Primary osteoarthritis, right shoulder
CPT/HCPCS: 73221

== ENCOUNTER → 2025-02-08 08:20 | Outpatient (BNVA) | payer MEDICAID, SELFPAY | PROVIDERS: PCP Family Medicine; Visit Provider Nurse Practitioner | DX: M19.011 Primary osteoarthritis, right shoulder (principal); M67.911 Unspecified disorder of synovium and tendon, right shoulder; M75.111 Incomplete rotator cuff tear or rupture of right shoulder, not specified as traumatic | CPT/HCPCS: 73030 ==

== ENCOUNTER → 2025-04-26 14:48 | Outpatient (BNVA) | payer MEDICAID, SELFPAY | PROVIDERS: PCP Family Medicine; Referring Provider Family Medicine; Visit Provider Internal Medicine Cardiovascular Disease | DX: R07.9 Chest pain, unspecified (principal); R94.31 Abnormal electrocardiogram [ECG] [EKG]; I49.3 Ventricular premature depolarization | CPT/HCPCS: 93005 ==